=== PATIENT | male | born 2000 | race Two or more races ===

== ENCOUNTER 2025-10-11 22:06 | Emergency (ER) | payer OTHER ==
[~2025-10-11] VITALS: Ht 172.7 cm; Wt 62.3 kg
[2025-10-11 22:13] VITALS: BP 129/77; PULSE 80; RESP 16; O2SAT 99
--- NOTE | 2025-10-11 22:27 | Physician Documentation ---
History of Present Illness ~ Chief Complaint: Laceration Stated Complaint: FINGER LAC Time Seen by MD: 22:19 HPI 25-year-old right-hand dominant male accidental left thumb laceration while cutting chicken at work. He has got a 1 cm superficial avulsion type laceration to the pulp of his left thumb. He is grossly neurologically intact and no joint involvement. Medication Reconciliation Allergies: Coded Allergies: No Known Allergies (Unverified , 10/11/25) Review of Systems All Other Systems at this time: Reviewed and Negative Integumentary: Reports: laceration(s) Physical Exam Vital Signs: RN Vital Signs have been reviewed: Yes, Temperature: 97.8, Heart Rate: 80, Respiratory Rate: 16, BP: 129/77, Pulse Oximetry: 99, Weight: 62.300 General Appearance: alert, WD/WN, mild distress EENT: PERRL/EOMI Neck: non-tender Extremities: other (Thumb laceration) Skin: other (Avulsion type laceration to the left distal thumb involving a small portion of the nail) Neurologic: oriented x4 Lymphatic: normal inspection Psychiatric: normal mood/affect Procedures Laceration/Wound Repair Laceration : Location: Left distal thumb Length (cm): 1 Anesthesia: none Prep: irrigated by physician Undermining: none Foreign Body: not identified Wound Repaired With: Dermabond Dressing Applied: simple Splint Applied?: No Tolerated Procedure Well?: yes, no complications Procedure Note Avulsion type laceration had Dermabond applied. Patient tolerated procedure well. Tube gauze dressing applied by myself. Remains grossly logically intact. Progress Results/Orders Results/Orders Completed Orders - VIELKA LAI Ibuprofen Tablet (Motrin Tablet) (10/11/25 22:45) Vital Signs 10/11/25 10/11/25 22:13 23:15 Temp 97.8 97.8 Pulse 80 Resp 16 B/P (MAP) 129/77 Pulse Ox 99 Medical Decision Making Additional information obtaine: N/A Findings Superficial avulsion type laceration to the left thumb requiring wound care. Wound care will consist of cleansing and topical Dermabond for protection. Tube gauze dressing applied. 72 hour recheck and [facility] follow up. Safely discharged in the emergency department. Differential Dx:Considerations: Include: Abrasion, Avulsion, Laceration Departure Disposition: 01 HOME / SELF CARE / HOMELESS Impression: Primary Impression: Finger laceration Qualified Codes: S61.112A - Laceration without foreign body of left thumb with damage to nail, initial encounter Discharge Instructions: Laceration Care, Adult, [id number] Additional Instructions: Please keep wound clean and dry for 3 days and seek re-evaluation in the emergency department and/or with your [facility]. Thank you for visiting emergency department [facility] Referrals: NO PRIMARY CARE PROVIDER (PCP) Education Educated: Patient Educated regarding: diagnosis, treatment, prognosis, need for follow up Signature Scribe Signature: . Attestation: . VIELKA LAI PAC Oct 11, 2025 22:27
[2025-10-11] MEDS: ibuprofen tablet 400 MG TABLET PO ONE (22:53)
[2025-10-11 23:15] VITALS: TEMP 97.8
== END 2025-10-11 23:21 | disposition home or self-care (01) ==
LOC: ER 22:07
DX: S61.012A Laceration without foreign body of left thumb without damage to nail, initial encounter (principal); W45.0XXA Nail entering through skin, initial encounter; Y93.89 Activity, other specified; Y92.89 Other specified places as the place of occurrence of the external cause; Y99.8 Other external cause status
CPT/HCPCS: 12001; 99283; A6258; A6449